=== PATIENT | male | born 1945 | race Caucasian/White ===

== ENCOUNTER 2016-12-25 10:05 | Day surgery (SDC) | payer MEDICARE ==
[~2016-12-25] VITALS: Ht 172.7 cm; Wt 93.6 kg
[~2016-12-25 10:05] MED LIST: AMLO5TAB2 PO; ASPI-496 PO; ATOR40TA78 PO; LISI40TA PO; METO25TA91 PO; MULTIVITAMIN PO; NITR0.4T28 SL; TADA20TA PO; TICA90TA PO; ZOLP10TA5 PO
[2016-12-25 10:33] VITALS: BP 145/90
[2016-12-25] MEDS ORDERED: METO25TA91 PO (11:04)
[2016-12-25] MEDS ORDERED: NITR0.4T SL (11:04)
[2016-12-25] MEDS ORDERED: AZEL137S4 NAS (11:04)
[2016-12-25] MEDS ORDERED: ZOLP10TA PO (11:04)
[2016-12-25] MEDS ORDERED: AMLO5TAB2 PO (11:04)
[2016-12-25] MEDS ORDERED: ATOR40TA PO (11:04)
[2016-12-25] MEDS ORDERED: LISI40TA PO (11:04)
[2016-12-25] MEDS ORDERED: NITROGLYCERIN 5 MG/ML, 10ML ONE (12:18)
[2016-12-25] MEDS ORDERED: MIDAZOLAM 1 MG/ML, 5ML ONE (12:18)
[2016-12-25] MEDS ORDERED: FENTANYL PF 100 MCG/2ML ONE (12:18)
[2016-12-25] MEDS ORDERED: HEPARIN 1,000 UNITS/ML, 10ML ONE ×2 (12:19→12:22)
[2016-12-25] MEDS ORDERED: VERAPAMIL 2.5 MG/ML, 2ML ONE (12:19)
[2016-12-25] MEDS ORDERED: BIVALIRUDIN 250 MG ONE (12:19)
[2016-12-25] MEDS ORDERED: LIDOCAINE 2%, 20ML ONE (12:19)
== END 2016-12-25 15:15 ==
LOC: CACL 10:05
PROVIDERS: ATTEND Internal Medicine Cardiovascular Disease
DX: I25.10 Atherosclerotic heart disease of native coronary artery without angina pectoris (principal); I10 Essential (primary) hypertension
CPT/HCPCS: 93458; 99156; 99157; C1894; J1644; J2250; J3010; J3490; Q9967; J0583